=== PATIENT | female | born 1995 | race African-American/Black ===

== ENCOUNTER 2018-03-17 12:36 | Emergency (ER) | payer MEDICAID ==
[~2018-03-17] VITALS: Ht 162.6 cm; Wt 49.0 kg
[2018-03-17] MEDS ORDERED: SODIUM CHLORIDE 0.9% 1,000 ML IV ONE (13:40)
[2018-03-17] MEDS ORDERED: ONDANSETRON HCL 4MG/2ML INJ IV STA (13:40)
[2018-03-17] MEDS ORDERED: MORPHINE SULFATE 4 MG/ML CPJ (NOT FOR IM USE) IV STA (13:40)
[2018-03-17 14:52] LABS: BASOPHILS % 0.5 % (0.0-2.0); EOSINOPHILS % 1.1 % (0.0-5.0); HEMATOCRIT. 36.4 % (36.0-48.0); LYMPHOCYTES % 23.9 % (20.0-50.0); MEAN CORPUSCULAR HEMOGLOBIN 25.7 pg (28.0-32.0); MEAN CORPUSCULAR VOLUME 77.7 fL (81.0-99.0); MEAN PLATELET VOLUME 9.4 fl (7.4-10.4); NEUTROPHILS % 67.5 % (40.0-76.0); PLATELET 244 x1000/uL (130-400); RED BLOOD CELL COUNT 4.68 mill/uL (4.2-5.4); RED CELL DISTRIBUTION WIDTH 14.2 % (11.6-14.6)
[2018-03-17 14:56] LABS: CHLORIDE 106 mEq/L (98-107)
[2018-03-17 15:00] LABS: ETHANOL BLOOD < 10 mg/dL
[2018-03-17] MEDS ORDERED: ACETAMINOPHEN 325MG TABLET PO ONE (15:00)
[2018-03-17 15:01] LABS: INR 1.1; PROTHROMBIN TIME 10.9 sec (9.1-11.1)
[2018-03-17 15:17] LABS: HCG SCREEN NEGATIVE
[2018-03-17 17:30] VITALS: BP 96/62
== END 2018-03-17 18:03 | disposition home or self-care (01) ==
LOC: ER 12:36
DX: J01.10 Acute frontal sinusitis, unspecified (principal); R51 Headache; F41.9 Anxiety disorder, unspecified; J45.909 Unspecified asthma, uncomplicated; E05.90 Thyrotoxicosis, unspecified without thyrotoxic crisis or storm; D57.1 Sickle-cell disease without crisis
CPT/HCPCS: 36415; 70551; 71045; 80053; 84703; 85025; 85610; 93005; 96360; 99285; G0482; J7030; J7040; Z7610; J2270; J2405

== ENCOUNTER 2020-01-23 13:49 | Emergency (ER) | payer MEDICAID, OTHER ==
[~2020-01-23] VITALS: Ht 167.6 cm; Wt 52.0 kg
[2020-01-23] MEDS ORDERED: LORAZEPAM 0.5MG TABLET PO ONE (14:30)
[2020-01-23] MEDS ORDERED: IBUPROFEN 600MG TABLET PO ONE (14:30)
[2020-01-23] MEDS ORDERED: ONDANSETRON 4MG ODT PO ONE (15:15)
[2020-01-23 15:24] VITALS: BP 119/77
== END 2020-01-23 15:27 | disposition home or self-care (01) ==
LOC: ER 13:49
DX: R51 Headache (principal); F41.9 Anxiety disorder, unspecified; J45.909 Unspecified asthma, uncomplicated; E05.90 Thyrotoxicosis, unspecified without thyrotoxic crisis or storm
CPT/HCPCS: 70450; 99284; Q0162

== ENCOUNTER 2021-12-10 22:42 | Emergency (ER) | payer OTHER ==
[~2021-12-10] VITALS: Ht 165.1 cm; Wt 57.0 kg
[2021-12-10 22:47] VITALS: BP 161/79
[2021-12-10] MEDS ORDERED: ACETAMINOPHEN 325MG TABLET PO ONE (23:30)
[2021-12-10] MEDS ORDERED: IBUP-2029 MT (23:52)
== END 2021-12-11 00:38 | disposition home or self-care (01) ==
LOC: ER 22:42
DX: J02.9 Acute pharyngitis, unspecified (principal); J45.909 Unspecified asthma, uncomplicated
CPT/HCPCS: 81025; 99282

== ENCOUNTER 2021-12-30 21:28 | Emergency (ER) | payer OTHER ==
[~2021-12-30] VITALS: Ht 162.6 cm; Wt 56.3 kg
[~2021-12-30 21:28] MED LIST: IBUP-2029 MT
[2021-12-31] MEDS ORDERED: HYDROCODONE/ACETAMINOPHEN 5/325MG TABLET PO ONE (02:15)
[2021-12-31 02:26] VITALS: BP 124/85
[2021-12-31] MEDS ORDERED: IBUP-2028 MT (03:18)
[2021-12-31] MEDS ORDERED: ONDA4TAB50 MT (03:18)
== END 2021-12-31 03:47 | disposition home or self-care (01) ==
LOC: ER 21:28
DX: G43.909 Migraine, unspecified, not intractable, without status migrainosus (principal); F41.9 Anxiety disorder, unspecified; J45.909 Unspecified asthma, uncomplicated
CPT/HCPCS: 81025; 99284

== ENCOUNTER 2022-08-25 17:49 | Emergency (ER) | payer MEDICAID, OTHER ==
[~2022-08-25] VITALS: Ht 162.6 cm; Wt 62.0 kg
[~2022-08-25 17:49] MED LIST changes: +IBUP-2028 MT; +ONDA4TAB50 MT
[2022-08-25 17:55] VITALS: BP 126/84
[2022-08-25] MEDS ORDERED: IBUPROFEN 400MG TABLET PO ONE (19:15)
[2022-08-25] MEDS ORDERED: IBUP-2028 MT (20:16)
== END 2022-08-25 20:49 | disposition home or self-care (01) ==
LOC: ER 18:11
DX: M25.561 Pain in right knee (principal); F41.9 Anxiety disorder, unspecified; J45.909 Unspecified asthma, uncomplicated
CPT/HCPCS: 73560; 99283; Z7610

== ENCOUNTER 2023-09-29 03:04 | Emergency (ER) | payer OTHER ==
[~2023-09-29] VITALS: Ht 162.6 cm; Wt 71.9 kg
[2023-09-29 03:12] VITALS: O2SAT 98
[2023-09-29] MEDS ORDERED: IBUP-2029 MT (09:02)
[2023-09-29] MEDS ORDERED: METH-653 MT (09:02)
[2023-09-29] MEDS ORDERED: METHOCARBAMOL 500MG TABLET PO NR (09:45)
[2023-09-29] MEDS ORDERED: ACETAMINOPHEN 325MG TABLET PO NR (09:45)
[2023-09-29] MEDS: ACETAMINOPHEN 325MG TABLET PO ONE (09:56)
[2023-09-29] MEDS: METHOCARBAMOL 500MG TABLET PO ONE (09:57)
[2023-09-29 10:00] VITALS: BP 128/86; PULSE 83; RESP 17; TEMP 98.2
== END 2023-09-29 10:00 | disposition home or self-care (01) ==
LOC: ER 03:04
DX: S50.11XA Contusion of right forearm, initial encounter (principal); S13.4XXA Sprain of ligaments of cervical spine, initial encounter; F41.9 Anxiety disorder, unspecified; J45.909 Unspecified asthma, uncomplicated; V98.8XXA Other specified transport accidents, initial encounter; Y93.89 Activity, other specified; Y92.89 Other specified places as the place of occurrence of the external cause; Y99.8 Other external cause status
CPT/HCPCS: 73090; 81025; 99284